=== PATIENT | female | born 1940 | race Two or more races ===

== ENCOUNTER 2025-03-22 15:38 | Inpatient (IN) | payer MEDICARE, OTHER ==
[~2025-03-22] VITALS: Ht 157.5 cm; Wt 67.6 kg
[2025-03-22] MEDS ORDERED: LIDO1ADH82 TP (16:32)
[2025-03-22] MEDS ORDERED: DIPH25TA62 PO (16:32)
[2025-03-22] MEDS ORDERED: ACET325T53 PO (16:32)
[2025-03-22] MEDS ORDERED: LEVO137T2 PO (16:32)
[2025-03-22] MEDS ORDERED: CYAN100096 PO (16:32)
[2025-03-22] MEDS ORDERED: ALPR0.5T8 PO (16:32)
[2025-03-22] MEDS ORDERED: CARV6.252 PO (16:32)
[2025-03-22] MEDS ORDERED: CLON0.1T PO (16:32)
[2025-03-22] MEDS ORDERED: FOLI0.4T6 PO (16:32)
[2025-03-22] MEDS ORDERED: FERR325T24 PO (16:32)
[2025-03-22] MEDS ORDERED: FURO20TA4 PO (16:32)
[2025-03-22] MEDS ORDERED: HYDR-4077 PO (16:32)
[2025-03-22] MEDS ORDERED: ATOR10TA PO (16:32)
[2025-03-22] MEDS ORDERED: ASPI-1420 PO (16:32)
[2025-03-22] MEDS ORDERED: AZEL137S7 BNOSTRILS (16:32)
[2025-03-22] MEDS ORDERED: KETO5DRO83 EACHEYE (16:32)
[2025-03-22] MEDS ORDERED: DICL100G34 TP (16:32)
[2025-03-22] MEDS ORDERED: TRAM50TA2 PO (16:32)
[2025-03-22] MEDS ORDERED: AMIN30LI66 PO (16:32)
[2025-03-22] MEDS ORDERED: CHOL200026 PO (16:32)
[2025-03-22] MEDS ORDERED: DOXA4TAB3 PO (16:32)
[2025-03-22] MEDS ORDERED: ASPIRIN 325 MG TABLET ONE (17:29)
[2025-03-22] MEDS: ASPIRIN 325 MG TABLET PO ONE (17:35)
[2025-03-22] MEDS ORDERED: HYDROCHLOROTHIAZIDE 25 MG TABLET ONE (17:48)
[2025-03-22] MEDS: HYDROCHLOROTHIAZIDE 25 MG TABLET PO ONE (17:57)
[2025-03-22] MEDS: FUROSEMIDE 20 MG/2 ML VIAL IV ONE (18:15)
[2025-03-22 19:10] LABS: PLATELET COUNT (AUTO) 218 K/uL (150-450); RED BLOOD CELL COUNT(AUTO) 4.17 MIL/uL (4.0-5.2); RED CELL DISTRIBUTION WIDTH 17.6 % (11.5-15.0); WHITE BLOOD COUNT (AUTO) 11.4 K/uL (4.3-11.0)
[2025-03-22 19:17] LABS: CALCIUM, SERUM 9.9 mg/dL (8.5-10.1); CREATININE 1.8 mg/dL (0.6-1.3); SODIUM SERUM 136 mmol/L (136-145); UREA NITROGEN, BLOOD 38 mg/dL (7-18)
[2025-03-22 19:30] LABS: ASPARTATE AMINOTRANSFERASE 17 U/L (15-37); NT-PRO BNP 2744 pg/mL (0-125); TOTAL PROTEIN, SERUM 7.5 g/dL (6.4-8.2)
[2025-03-22] MEDS ORDERED: ASPIRIN 325 MG TABLET PO ONE (19:30)
[2025-03-22] MEDS ORDERED: FUROSEMIDE 20 MG/2 ML VIAL ONE (19:51)
[2025-03-22] MEDS ORDERED: MAG HYDROX/AL HYDROX/SIMETH 30 ML UDC PO PRN (20:00)
[2025-03-22] MEDS ORDERED: NITROGLYCERIN 0.4 MG/TAB BOTTLE SL PRN (20:00)
[2025-03-22] MEDS ORDERED: ACETAMINOPHEN 325 MG TABLET PO PRN (20:00)
[2025-03-22] MEDS ORDERED: ONDANSETRON HCL/PF 4 MG/2 ML VIAL IVP PRN (20:00)
[2025-03-22] MEDS ORDERED: Z GUARD REMEDY 4 OZ OINT TP PRN (20:00)
[2025-03-22] MEDS ORDERED: MAGNESIUM HYDROXIDE 30 ML UDC PO PRN (20:00)
[2025-03-22] MEDS ORDERED: hydrALAZINE HCL IV 20 MG VIAL ONE (20:46)
[2025-03-22] MEDS: hydrALAZINE HCL IV 20 MG VIAL IV PRN (20:50)
[2025-03-22 22:20] VITALS: BP 113/83; TEMP 98.6; O2SAT 98
[2025-03-22 22:30] VITALS: BP 183/74; TEMP 98.6; O2SAT 97
[2025-03-22] MEDS: TEMAZEPAM 15 MG CAPSULE PO PRN (23:07)
[2025-03-23] MEDS: hydrALAZINE HCL IV 20 MG VIAL IV PRN (00:53)
[2025-03-23] MEDS ORDERED: ALPRAZOLAM 0.25 MG TABLET PO PRN (01:00)
[2025-03-23 01:59] VITALS: BP 169/66
[2025-03-23 04:00] VITALS: BP 185/72; TEMP 97.9; O2SAT 96
[2025-03-23 06:40] VITALS: BP 146/61
[2025-03-23 07:53] LABS: PLATELET COUNT (AUTO) 209 K/uL (150-450); RED BLOOD CELL COUNT(AUTO) 3.97 MIL/uL (4.0-5.2); RED CELL DISTRIBUTION WIDTH 18.4 % (11.5-15.0); WHITE BLOOD COUNT (AUTO) 9.9 K/uL (4.3-11.0)
[2025-03-23 08:00] VITALS: BP 166/64; TEMP 98.8; O2SAT 97
[2025-03-23 08:04] LABS: CALCIUM, SERUM 10.1 mg/dL (8.5-10.1); CREATININE 1.8 mg/dL (0.6-1.3); PHOSPHORUS 3.9 mg/dL (2.5-4.9); SODIUM SERUM 140.0 mmol/L (136-145); UREA NITROGEN, BLOOD 41.0 mg/dL (7-18)
[2025-03-23] MEDS: ASPIRIN 81 MG TAB.CHEW PO SCH (08:36)
[2025-03-23] MEDS: FUROSEMIDE 40 MG/4 ML VIAL IV SCH (08:36)
[2025-03-23] MEDS: PANTOPRAZOLE 40 MG TABLET.DR PO SCH (08:36)
[2025-03-23 08:38] LABS: LDL 140.0 mg/dL (0-99)
[2025-03-23] MEDS: HYDROCODONE/APAP 5/325MG TABLET PO PRN (10:25)
[2025-03-23] MEDS ORDERED: DICLOFENAC TOPICAL 100 GM TUBE TP PRN (13:00)
[2025-03-23] MEDS ORDERED: FUROSEMIDE 20 MG TABLET PO SCH (13:00)
[2025-03-23] MEDS ORDERED: TRAMADOL HCL 50 MG TABLET PO PRN (13:00)
[2025-03-23] MEDS: KETOROLAC EYE 0.5% 3 ML BOTTLE EACHEYE SCH (13:00)
[2025-03-23] MEDS ORDERED: ASPIRIN EC 81 MG TABLET.DR PO SCH (13:00)
[2025-03-23] MEDS: FERROUS SULFATE (325 MG) 325 MG/TAB TABLET PO SCH (13:23)
[2025-03-23] MEDS: CHOLECALCIFEROL 1,000 UNIT TABLET (VIT D3) PO SCH (13:23)
[2025-03-23] MEDS: FOLIC ACID 1 MG TABLET PO SCH (13:24)
[2025-03-23] MEDS: CLONIDINE HCL 0.1 MG TABLET PO SCH (13:25)
[2025-03-23] MEDS: CARVEDILOL 6.25 MG TABLET PO SCH (13:25)
[2025-03-23] MEDS: DOXAZOSIN MESYLATE (4 MG) 4 MG TABLET PO SCH (13:27)
[2025-03-23] MEDS: CYANOCOBALAMIN 500 MCG TABLET PO SCH (13:27)
[2025-03-23] MEDS: LEVOTHYROXINE SODIUM 137 MCG TABLET PO SCH (13:28)
[2025-03-23 16:00] VITALS: BP 142/55; TEMP 98.2; O2SAT 95
[2025-03-23] MEDS: ALPRAZOLAM 0.5 MG TABLET PO SCH (16:12)
[2025-03-23] MEDS: AMLODIPINE BESYLATE 5 MG TABLET PO SCH (16:28)
[2025-03-23 20:00] VITALS: BP 113/72; TEMP 97.9; O2SAT 98
[2025-03-23] MEDS: ATORVASTATIN 10 MG TABLET PO SCH (21:17)
[2025-03-23] MEDS: AZELASTINE NASAL SPRAY 30 ML BOTTLE NS SCH (21:18)
[2025-03-24] VITALS: BP 140/53; TEMP 98.2; O2SAT 95
[2025-03-24 04:00] VITALS: BP 144/59; TEMP 98.6; O2SAT 95
[2025-03-24 06:59] LABS: PLATELET COUNT (AUTO) 180 K/uL (150-450); RED BLOOD CELL COUNT(AUTO) 3.66 MIL/uL (4.0-5.2); RED CELL DISTRIBUTION WIDTH 18.2 % (11.5-15.0); WHITE BLOOD COUNT (AUTO) 8.8 K/uL (4.3-11.0)
[2025-03-24 07:14] LABS: CREATINE KINASE, TOTAL 17.0 U/L (26-192)
[2025-03-24 07:20] LABS: ASPARTATE AMINOTRANSFERASE 17.0 U/L (15-37); CALCIUM, SERUM 9.3 mg/dL (8.5-10.1); CREATININE 1.8 mg/dL (0.6-1.3); PHOSPHORUS 3.3 mg/dL (2.5-4.9); SODIUM SERUM 138.0 mmol/L (136-145); TOTAL PROTEIN, SERUM 6.2 g/dL (6.4-8.2); UREA NITROGEN, BLOOD 42.0 mg/dL (7-18)
[2025-03-24 08:00] VITALS: BP 160/61; TEMP 98.1; O2SAT 97
[2025-03-24] MEDS ORDERED: AMLO-212 PO (08:42)
[2025-03-24] MEDS: ASPIRIN EC 81 MG TABLET.DR PO SCH (08:44)
[2025-03-24 12:00] VITALS: BP 123/58; TEMP 97.5; O2SAT 97
[2025-03-24 16:00] VITALS: BP 127/61; TEMP 97.9; O2SAT 97
[2025-03-24 17:38] VITALS: BP 113/53
[2025-03-25 06:07] LABS: PTH, INTACT 19 pg/mL (15-65)
== END 2025-03-24 20:50 | DRG 280 ==
LOC: ER 15:48 → TELE 20:23
PROVIDERS: ADMIT Nurse Practitioner Acute Care; ATTEND Nurse Practitioner Acute Care
DX: I13.0 Hypertensive heart and chronic kidney disease with heart failure and stage 1 through stage 4 chronic kidney disease, or unspecified chronic kidney disease (principal); I50.33 Acute on chronic diastolic (congestive) heart failure; I21.A1 Myocardial infarction type 2; N17.0 Acute kidney failure with tubular necrosis; F03.93 Unspecified dementia, unspecified severity, with mood disturbance; F03.92 Unspecified dementia, unspecified severity, with psychotic disturbance; N18.9 Chronic kidney disease, unspecified; Z20.822 Contact with and (suspected) exposure to COVID-19; Z79.890 Hormone replacement therapy; Z79.899 Other long term (current) drug therapy; D64.9 Anemia, unspecified; E03.9 Hypothyroidism, unspecified; E66.9 Obesity, unspecified; Z68.27 Body mass index [BMI] 27.0-27.9, adult; F29 Unspecified psychosis not due to a substance or known physiological condition; F32.A Depression, unspecified
CPT/HCPCS: 36415; 71045-TC; 76770-TC; 80048-TC; 80053-TC; 80061-TC; 80076-TC; 82550-TC; 83735-TC; 83880; 83970; 84100-TC; 84155; 84165; 84443-TC; 84484-TC; 85025-TC; 87081-TC; 93307-TC; 97110-TC; 97112-TC; 97116-TC; 97530-TC; G0378; J0360; J1938